=== PATIENT | male | born 1985 ===

== ENCOUNTER 2018-08-05 10:51 | Emergency (ER) | payer OTHER ==
[~2018-08-05] VITALS: Ht 152.4 cm; Wt 108.9 kg
== END 2018-08-05 12:54 | disposition home or self-care (01) ==
LOC: ER 10:51
DX: S74.02XA Injury of sciatic nerve at hip and thigh level, left leg, initial encounter (principal); X58.XXXA Exposure to other specified factors, initial encounter; Y93.89 Activity, other specified; Y92.89 Other specified places as the place of occurrence of the external cause; Y99.8 Other external cause status